=== PATIENT | male | born 1960 | race Caucasian/White ===

== ENCOUNTER 2017-02-14 14:44 | Outpatient (CLI) | payer OTHER | END 2017-02-14 14:45 | disposition home or self-care (01) | DX: G47.33 Obstructive sleep apnea (adult) (pediatric) (principal) ==

== ENCOUNTER 2017-04-20 14:21 | Outpatient (CLI) | payer OTHER | END 2017-04-20 14:22 | disposition home or self-care (01) | LOC: SC 14:21 | PROVIDERS: ATTEND Nurse Practitioner Family | DX: G47.33 Obstructive sleep apnea (adult) (pediatric) (principal) | CPT/HCPCS: 99212; 99214 ==

== ENCOUNTER 2017-06-15 13:52 | Outpatient (CLI) | payer OTHER | END 2017-06-15 13:53 | disposition home or self-care (01) | LOC: SC 13:52 | PROVIDERS: ATTEND Nurse Practitioner Family | DX: G47.33 Obstructive sleep apnea (adult) (pediatric) (principal) | CPT/HCPCS: 99212; 99214 ==

== ENCOUNTER 2018-08-15 14:38 | Outpatient (CLI) | payer OTHER | END 2018-08-15 14:39 | disposition home or self-care (01) | LOC: SC 14:38 | PROVIDERS: ATTEND Nurse Practitioner Family | DX: G47.33 Obstructive sleep apnea (adult) (pediatric) (principal) | CPT/HCPCS: 99212; 99214 ==

== ENCOUNTER 2018-12-18 12:45 | Outpatient (CLI) | payer OTHER | END 2018-12-18 12:46 | disposition home or self-care (01) | LOC: SC 12:45 | PROVIDERS: ATTEND Nurse Practitioner Family | DX: G47.33 Obstructive sleep apnea (adult) (pediatric) (principal) | CPT/HCPCS: 99212; 99214 ==

== ENCOUNTER 2020-04-16 15:46 | Outpatient (CLI) | payer OTHER ==
[2020-04-16 17:01] VITALS: BP 124/80
--- NOTE | 2020-04-16 17:01 | SLEEP CARE CONSULTATION ---
Information from patient questionnaire entered by Emily Rubio. I have reviewed and concur with the information entered by Emily Rbuio. This document represents the service I personally performed and the decisions made by me, Divine Gray, RN, MSN, H[employer] TENSION TE[employer]. History of Present Illness Service Date and Time: 04/16/2020 1546 Previous diagnosis: Mild, Obstructive Sleep Apnea-Hypopnea Syndrome AHI: 7.7 (in 2008) Reason for follow up: annual (last seen 2018) Equipment type: CPAP Equipment obtained from: [employer] (getting supplies as needed) Mask style: Full face (quartro mirage) Backup mask available: Yes (old mask ) Last cushion change: a week ago CPAP Compliance Data - Data Reviewed with Patient Average duration of nightly device use: 5.45 Compliance rate %: 82.2 (180 days) Current pressure setting (cmH2O): 6-10 Humidity settin Average residual AHI: 1.5 Average large leak: 7 min Subjective Patient concerns: denies: aerophagia, mask discomfort, air blowing in eyes, mask leak noise, condensation in mask/hose, nasal congestion, dry mouth, nose, throat, epistaxis, other Observed to snore while using device: No Current pressure setting perceived as: comfortable On therapy, patient: reports: sleeping better, awakening more refreshed, being more awake and alert during the day, more rested overall. denies: drowsiness while driving Initial [place] Sleepiness Scale score: 10 (in 2008) Current [place] Sleepiness Scale score: 4 Allergies and Home Medications Known drug allergies: No Home medication list reviewed: No (none) Review of Systems Review of systems same as previous: Yes Physical Exam Blood Pressure: 124/80 Cuff size: long Heart Rate: 74 O2 Saturation: 97 Height: 6 ft 2 in Weight: 241 lb Body Mass Index: 30.9 BMI Classification: Obese Impression and Plan 1. Obstructive Sleep Apnea-Hypopnea Syndrome, mild, with good treatment compliance and good apnea control. On CPAP therapy, the patient has better sleep quality and is more rested overall. To obtain more sleep with CPAP, he is advised to put mask on after using the bathroom as there is a higher risk of apnea in late sleep due to increase of REM. In addition, to prevent falling asleep without CPAP. He can also put the CPAP mask on pillow as a reminder. I looked up his sleep study and his apnea is primarily in REM sleep and showed patient his hypnogram. Maximum benefit of CPAP is obtained with use of CPAP with all sleep. Currently patients BMI is 30.9 obesity class . Obesity increases the risk of apnea, CPAP pressure requirements and overall health risks especially cardiovascular and diabetes. Thus patient is advised to lose weight. Weight loss can be done with reducing portion size, reducing refined foods and balancing content with vegetables, fruit and protein. A diet consultation can be helpful in achieving optimal weight loss goals. The BMI chart was reviewed. T Patient encouraged to discuss their weight loss goals with their PCP and consider a referral to a port patrol officer. The patient's CPAP pressure range should accommodate some weight loss. Symptoms to report for additional pressure adjustment discussed. Patient's apnea severity and rationale for treatment to reduce apnea, improve sleep quality and reduce cardiovascular and cerebrovascular events was reviewed. * Continue auto CPAP pressure at 6-10 cmH2O * Use CPAP with all sleep * Notify me if snoring with mask or feeling that the pressure is too much or too little * Attempt to lose weight * Call this office if any problems using CPAP * Return for follow up in 1 year , or sooner if concerns arise Visit Type: In Office Time Spent with Patient (minutes): 20 Provider Statement: I spent 100% of the Face to Face Visit with the patient with greater than 50% spent counseling the patient and coordination of care.
== END 2020-04-16 15:47 | disposition home or self-care (01) ==
LOC: SC 15:46
PROVIDERS: ATTEND Nurse Practitioner Family
DX: G47.33 Obstructive sleep apnea (adult) (pediatric) (principal); E66.9 Obesity, unspecified; Z68.30 Body mass index [BMI] 30.0-30.9, adult
CPT/HCPCS: 99212; 99213

== ENCOUNTER 2021-05-12 16:46 | Outpatient (CLI) | payer OTHER ==
--- NOTE | 2021-05-12 17:22 | SLEEP CARE CONSULTATION ---
Information from patient questionnaire entered by Leslie Lovell. I have reviewed and concur with the information entered by Leslie Lovell. This document represents the service I personally performed and the decisions made by , Idania Houston ARNP. History of Present Illness Service Date and Time: 05/12/2021 1646 Previous diagnosis: Mild, Obstructive Sleep Apnea-Hypopnea Syndrome AHI: 7.7 (in 2008) Reason for follow up: annual (Last seen 04/2020) Equipment type: CPAP Equipment obtained from: [employer] (getting supplies as needed) Mask style: Full face (Quattro mirage) Backup mask available: Yes (old mask) Last cushion change: 2 weeks ago Year and Where: 2012 [facility] poly HPI additional information: TIFF HOGAN was diagnosed to have mild, AHI 7.7, obstructive sleep apnea- hypopnea syndrome and returned today for CPAP therapy annual follow-up. CPAP Compliance Data - Data Reviewed with Patient Average duration of nightly device use: 6 h 17 min Compliance rate %: 87.8 Current pressure setting (cmH2O): 6-10 Average residual AHI: 1.3 Average large leak: 7 min 20 sec Subjective Patient concerns: denies: aerophagia, mask discomfort, air blowing in eyes, mask leak noise, condensation in mask/hose, nasal congestion, dry mouth, nose, throat, epistaxis, other Observed to snore while using device: No Current pressure setting perceived as: comfortable On therapy, patient: reports: sleeping better, awakening more refreshed, being more awake and alert during the day, more rested overall. denies: drowsiness while driving Initial [place] Sleepiness Scale score: 10 (in 2008) Current [place] Sleepiness Scale score: 5 Allergies and Home Medications Home medication list reviewed: Yes (no changes) Review of Systems Review of systems same as previous: Yes (no changes) Physical Exam Heart Rate: 70 O2 Saturation: 96 Height: 6 ft 2 in Weight: 241 lb Body Mass Index: 30.9 BMI Classification: Obese Impression and Plan 1. Obstructive Sleep Apnea-Hypopnea Syndrome, mild, with good treatment compliance and good apnea control. On CPAP therapy, the patient has better sleep quality and is more rested overall. Patient last updated his machine in 2013. His REMstar is on possibly on the [employer] recall. I instructed him on how to go on to their website to register his machine. Since he is eligible for a new machine we will update it. He has not noted any particles in the hose or the water chamber. The patients CPAP is over 5 years old and of reasonable use. Thus, the CPAP will be updated. A DWO prescription will be made. Compliance guidelines for new device and follow up discussed. I will follow-up with him 1 month after obtaining his new device. Patient's apnea severity and rationale for treatment to reduce apnea, improve sleep quality and reduce cardiovascular and cerebrovascular events was reviewed. * Continue auto CPAP pressure at 6-10 cmH2O * Update machine * Update supplies as needed * Notify me if snoring with mask or feeling that the pressure is too much or too little * Attempt to lose weight * Call this office if any problems using CPAP * Return for follow up in 1 year, or sooner if concerns arise Counseling Topics: Spare mask, Weight loss health impact Visit Type: In Office Time Spent with Patient (minutes): 22 Provider Statement: I spent 100% of the Face to Face Visit with the patient with greater than 50% spent counseling the patient and coordination of care.
== END 2021-05-12 16:47 | disposition home or self-care (01) ==
LOC: SC 16:46
PROVIDERS: ATTEND Nurse Practitioner Family
DX: G47.33 Obstructive sleep apnea (adult) (pediatric) (principal); E66.9 Obesity, unspecified; Z68.30 Body mass index [BMI] 30.0-30.9, adult
CPT/HCPCS: 99212; 99213

== ENCOUNTER 2023-01-13 14:38 | Outpatient (CLI) | payer OTHER ==
[2023-01-13 15:02] VITALS: BP 112/62
--- NOTE | 2023-01-13 15:02 | SLEEP CARE CONSULTATION ---
Information from patient questionnaire entered by Josefina Mejia. I have reviewed and concur with the information entered by Josefina Mejia. This document represents the service I personally performed and the decisions made by , Idania Houston ARNP. History of Present Illness Service Date and Time: 01/13/2023 1438 Previous diagnosis: Mild, Obstructive Sleep Apnea-Hypopnea Syndrome AHI: 7.7 (in 2008) Reason for follow up: first compliance after device update Equipment type: CPAP (RESMED Airsense 11 s/u 09/2022) Equipment obtained from: [employer] (getting supplies as needed) Mask style: Full face (Quattro mirage) Backup mask available: Yes (old mask) Last cushion change: December Prior sleep studies: Yes Year and Where: [address] [facility] [place] poly HPI additional information: TIFF HOGAN was diagnosed to have mild, AHI 7.7, obstructive sleep apnea- hypopnea syndrome and returned today for CPAP therapy first compliance after updating device follow-up. Sleep Study - Results Prior sleep studies: Yes Year and Where: [address] [facility] poly CPAP Compliance Data - Data Reviewed with Patient Average duration of nightly device use: 7 HRS 16 MINS Compliance rate %: 97 (12/13/22-01/11/23; 29/30 days used) Current pressure setting (cmH2O): 6-10 Average residual AHI: 0.8 Central apnea: 0.1 Obstructive apnea: 0.1 Hypopnea: 0.6 Subjective Missed days of use due to: reports: other (fell asleep without mask) Patient concerns: denies: aerophagia, mask discomfort, air blowing in eyes, mask leak noise, condensation in mask/hose, nasal congestion, dry mouth, nose, throat, epistaxis Observed to snore while using device: No Current pressure setting perceived as: comfortable On therapy, patient: reports: sleeping better, awakening more refreshed, being more awake and alert during the day, more rested overall. denies: drowsiness while driving Initial [place] Sleepiness Scale score: 10 (in 2008) Current [place] Sleepiness Scale score: 4 (01/13/23) Allergies and Home Medications Known drug allergies: No Drug allergies reviewed: Yes Home medication list reviewed: Yes (no changes) Review of Systems Review of systems same as previous: Yes (mole removed from right side of chest, benign) Physical Exam Vital signs obtained and entered by: JOSEFINA Coulter MA Blood Pressure: 112/62 (LEFT ARM) Cuff size: regular Heart Rate: 88 O2 Saturation: 97 Height: 6 ft 2 in Weight: 236 lb Body Mass Index: 30.2 BMI Classification: Obese Impression and Plan 1. Obstructive Sleep Apnea-Hypopnea Syndrome, mild, with good treatment compliance and good apnea control. On CPAP therapy, the patient has better sleep quality and is more rested overall. Patient had difficulty when he got his new machine because they sent him the wrong hose and filters for the new machine. He has since talked to them and they were supposed to send him out replacements but this has not occurred. I encouraged him to reach out to them so that he can get the supplies that he needs. He voiced understanding and agreement. Patient has significant improvement of their sleep apnea and is satisfied with current CPAP therapy. Patient denies problems with oral dryness, nasal congestion, epistaxis, skin irritation or aerophagia. Patient's apnea severity and rationale for treatment to reduce apnea, improve sleep quality and reduce card iovascular and cerebrovascular events was reviewed. 2. Obesity, unspecified. Currently patients BMI is 30.2. Obesity increases the risk of apnea, CPAP pressure requirements and overall health risks especially cardiovascular and diabetes. Thus patient is advised to lose weight. * Continue auto CPAP pressure at 6-10 cmH2O * Notify me if snoring with mask or feeling that the pressure is too much or too little * Attempt to lose weight * Call this office if any problems using CPAP * Return for follow up in 1 year, or sooner if concerns arise Counseling Topics: Spare mask, Weight loss health impact Visit Type: In Office Time Spent with Patient (minutes): 10 Provider Statement: I spent 100% of the Face to Face Visit with the patient with greater than 50% spent counseling the patient and coordination of care.
== END 2023-01-13 14:39 | disposition home or self-care (01) ==
LOC: SC 14:38
PROVIDERS: ATTEND Nurse Practitioner Family
DX: G47.33 Obstructive sleep apnea (adult) (pediatric) (principal); E66.9 Obesity, unspecified; Z68.30 Body mass index [BMI] 30.0-30.9, adult
CPT/HCPCS: 99212

== ENCOUNTER 2024-02-09 08:43 | Outpatient (CLI) | payer OTHER ==
--- NOTE | 2024-02-09 09:08 | Sleep Patient Instructions ---
Sleep Center Visit Summary - Patient Visit Information Reason for Visit: Annual follow-up - Patient Instructions Additional Instructions: You will continue with CPAP therapy with pressure set at 6-10 cmH2O. A supply prescription will be updated with your DME. We encourage you to continue to try to lose weight. Please follow up with the sleep care office in 1 year. - Clinic Information Contact: [facility] [address] [place] [address] [email or web address] T: [phone]
--- NOTE | 2024-02-09 09:11 | SLEEP CARE CONSULTATION ---
Information from patient questionnaire entered by Uzma Mejia. I have reviewed and concur with the information entered by Uzma Mejia. This document represents the service I personally performed and the decisions made by , Idania Houston ARNP. History of Present Illness Service Date and Time: 02/09/2024 0843 Previous diagnosis: Mild, Obstructive Sleep Apnea-Hypopnea Syndrome AHI: 7.7 (in 2008) Reason for follow up: annual (LAST SEEN 01/2023) Equipment type: CPAP (RESMED Airsense 11 s/u 09/2022) Equipment obtained from: [employer] (getting supplies as needed) Mask style: Full face (Quattro Mirage) Backup mask available: Yes Last cushion change: last month Prior sleep studies: Yes Year and Where: 2008 [facility] poly HPI additional information: TIFF HOGAN was diagnosed to have mild, AHI 7.7, obstructive sleep apnea- hypopnea syndrome and returned today for CPAP therapy annual follow-up. Sleep Study - Results Prior sleep studies: Yes Year and Where: 2012 [facility] poly CPAP Compliance Data - Data Reviewed with Patient Average duration of nightly device use: 7 HRS 43 MINS Compliance rate %: 99 (02/07/23-02/06/24; 363/365 days used) Current pressure setting (cmH2O): 6-10 Average residual AHI: 1.2 Central apnea: 0.1 Obstructive apnea: 0.3 Hypopnea: 0.8 Average large leak: 1.6 L/min Subjective Missed days of use due to: reports: illness (after surgery) Patient concerns: reports: air blowing in eyes (occasional ). denies: aerophagia, mask discomfort, mask leak noise, condensation in mask/hose, nasal congestion, dry mouth, nose, throat, epistaxis Observed to snore while using device: No Current pressure setting perceived as: comfortable On therapy, patient: reports: sleeping better, awakening more refreshed, being more awake and alert during the day, more rested overall. denies: drowsiness while driving Initial [place] Sleepiness Scale score: 10 (in 2008) Current [place] Sleepiness Scale score: 4 Allergies and Home Medications Known drug allergies: No Drug allergies reviewed: Yes Home medication list reviewed: Yes (81 mg aspirin) Allergy and home medication list: Allergies No Known Drug Allergies Allergy (Verified 02/07/24 09:41) Home Medications Medication Instructions Recorded Confirmed Last Taken Type Multivitamin See Rx Instructions .ROUTE .COMPLEX 01/13/23 02/09/24 Unknown History Aspirin See Rx Instructions .ROUTE .COMPLEX 02/09/24 02/09/24 Unknown History Flonase See Rx Instructions .ROUTE .COMPLEX 02/09/24 02/09/24 Unknown History Review of Systems Review of systems same as previous: No (aortic valve replacement [id number]) Physical Exam Vital signs obtained and entered by: IDANIA ANTHONY-Marylin Blood Pressure: 147/97 Cuff size: regular (left arm) Heart Rate: 92 O2 Saturation: 97 Height: 6 ft 2 in Weight: 239 lb 9.6 oz Weight change since last visit: 3 lb gain Body Mass Index: 30.7 BMI Classification: Obese Impression and Plan 1. Obstructive Sleep Apnea-Hypopnea Syndrome, mild, with good treatment compliance and good apnea control. On CPAP therapy, the patient has better sleep quality and is more rested overall. Patient has significant improvement of their sleep apnea and is satisfied with current CPAP therapy. Patient denies problems with oral dryness, nasal congestion, epistaxis, skin irritation or aerophagia. Patient's apnea severity and rationale for treatment to reduce apnea, improve sleep quality and reduce cardiovascular and cerebrovascular events was reviewed. He had an aortic valve replacement in June 2023. 2. Obesity, unspecified. Currently patients BMI is 30.7. He has gained weight since surgery. He is going to the gym 3 times a week and watching his portions. Obesity increases the risk of apnea, CPAP pressure requirements and overall health risks especially cardiovascular and diabetes. Thus patient is advised to continue to try to lose weight. * Continue auto CPAP pressure at 6-10 cmH2O * Update supply prescription * Notify me if snoring with mask or feeling that the pressure is too much or too little * Attempt to lose weight * Call this office if any problems using CPAP * Return for follow up in 12 months, or sooner if concerns arise Counseling Topics: Spare mask, Weight loss health impact Prescriptions: Device supplies Follow up with Sleep Care in: 1 year Visit Type: In Office Time Spent with Patient (minutes): 20 Provider Statement: I spent 100% of the Face to Face Visit with the patient with greater than 50% spent counseling the patient and coordination of care.
[2024-02-09 09:15] VITALS: BP 147/97; O2SAT 97
== END 2024-02-09 08:44 | disposition home or self-care (01) ==
LOC: SC 08:43
PROVIDERS: ATTEND Nurse Practitioner Family
DX: G47.33 Obstructive sleep apnea (adult) (pediatric) (principal); E66.9 Obesity, unspecified; Z68.30 Body mass index [BMI] 30.0-30.9, adult
CPT/HCPCS: 99212; 99213

== ENCOUNTER 2024-07-06 09:44 | Outpatient (CLI) | payer OTHER | END 2024-07-06 09:45 | disposition EMS.NT | LOC: EMS 09:44 | DX: R04.0 Epistaxis (principal) ==

== ENCOUNTER 2024-07-06 11:43 | Emergency (ER) | payer OTHER ==
--- NOTE | 2024-07-06 12:03 | ED Physician Documentation ---
History of Present Illness - Stated complaint Stated Complaint: PERSISTENT NOSE BLEED - Chief complaint Chief Complaint: Heent - Additonal information Additional information: 64-year-old male with history of valve disorder presents emergency department for nosebleed that has been going on since 9:30 AM. Patient says that he was going to the bathroom and started noticing right nares nosebleed eventually turned into bilateral nares nosebleed 911 was called around 930 and his vitals and everything were stable so medics told him if he wanted to self direct himself to the emergency department he is more than welcome to. They tried to get the nosebleeding to stop at home but were unable to. He takes a daily baby aspirin but is not any blood thinners. He has not had any recent trauma to the nose. PD PAST MEDICAL HISTORY - Past Medical History Past Medical History: Yes Cardiovascular: Valve disorder - Past Surgical History Past Surgical History: No - Present Medications Home Medications: Ambulatory Orders Medication Instructions Recorded Confirmed Multivitamin See Rx Instructions .ROUTE .COMPLEX 01/13/23 02/09/24 Aspirin See Rx Instructions .ROUTE .COMPLEX 02/09/24 02/09/24 Flonase See Rx Instructions .ROUTE .COMPLEX 02/09/24 02/09/24 cephALEXin [Keflex] 500 mg PO Q6H 5 Days #20 cap 07/06/24 - Allergies Allergies/Adverse Reactions: Allergies Allergy/AdvReac Type Severity Reaction Status Date / Time No Known Drug Allergies Allergy Verified 07/06/24 11:52 - Social History Does the pt smoke?: No Smoking Status: Never smoker Does the pt drink ETOH?: Yes Does the pt have substance abuse?: No PD ED PE NORMAL - Vitals Vital signs reviewed: Yes - General General: Alert and oriented X 3, Well developed/nourished - Cardiac Cardiac: RRR, No murmur, Strong equal pulses, Other (tachycardia) - Respiratory Respiratory: No respiratory distress, Clear bilaterally PD ED PE EXPANDED - HEENT HEENT: Bilateral epistaxis Results - Vitals Vitals: Vital Signs - 24 hr 07/06/24 07/06/24 07/06/24 11:55 12:36 12:38 Temperature 36.8 C Heart Rate 97 131 H Respiratory 18 Rate Blood Pressure 146/93 H 135/91 H 130/94 H O2 Saturation 97 07/06/24 07/06/24 07/06/24 13:00 13:30 14:00 Temperature Heart Rate 127 H 118 H 104 H Respiratory 21 20 18 Rate Blood Pressure 122/94 H 111/85 H 125/98 H O2 Saturation 96 95 96 07/06/24 07/06/24 14:30 15:00 Temperature Heart Rate 104 H 99 Respiratory 17 17 Rate Blood Pressure 135/78 H 129/84 H O2 Saturation 94 96 Oxygen O2 Source Room air - Labs Labs: Laboratory Tests 07/06/24 07/06/24 13:08 13:08 WBC 13.4 H RBC 4.95 Hgb 15.1 Hct 45.3 MCV 91.5 MCH 30.5 MCHC 33.3 RDW 12.9 Plt Count 299 MPV 8.9 Neut # (Auto) 11.6 H Lymph # (Auto) 1.0 L [place] # (Auto) 0.7 Eos # (Auto) 0.1 Baso # (Auto) 0.0 Absolute Nucleated RBC 0.00 Nucleated RBC % 0.0 Sodium 140 Potassium 4.4 Chloride 107 Carbon Dioxide 26 Anion Gap 7.0 BUN 32 H Creatinine 0.8 Estimated GFR (MDRD) 98 Glucose 137 H Calcium 9.4 Magnesium 1.8 Total Bilirubin 1.0 AST 12 ALT 7 L Alkaline Phosphatase 50 Total Protein 7.3 Albumin 4.3 Globulin 3.0 Albumin/Globulin Ratio 1.4 Lipase 15 PD Medical Decision Making - ED course ED course: Simple discharge This _ patient presents with likely anterior bilateral epistaxis. There are no risk factors for bleeding disorders and the patient is hemodynamically stable. No evidence of anemia. This patient is not on anticoagulant. Placed direct pressure and afirin without alleviation of symptoms, which led to further intervention requiring bilateral rhino-rockets which ultimately did stop the bleeding. He did have tachycardia while he was here which significantly improved with one Litre IV fluids. Labs are stable vitals stable. Patient is discharged with bilateral Rhino Rocket's and told to come back to the walk-in clinic in 3 days, on Monday to have both Rhino Rocket's removed and to follow-up with ENT outpatient. Prescription of Keflex was prescribed for prophylactic treatment especially given the fact that he had bilateral Rhino Rocket's he was taught how to take this and when to discontinue taking these antibiotics. Return precautions given all questions answered patient monitored for several hours is stable and safe for discharge. Departure - Departure Disposition: 01 Home, Self Care Clinical Impression: Anterior epistaxis Instructions: ED Nosebleed Prescriptions: cephALEXin [Keflex] 500 mg PO Q6H 5 Days #20 cap Comments: Thank you for trusting us with your care, you will actually need your rhino rockets removed On Monday. I am starting you on antibiotic called Keflex you will take this 4 times a day until you have your Rhino Rocket is removed you actually can go to the urgent care walk-in clinic for this if you are unable to get in same-day with ear nose and throat. Please help with your primary care provider to get an ENT referral for further evaluation of this nosebleed today. After you have your Rhino Rocket is removed make sure that you are keeping your nose moist with Vaseline to prevent from a repeat bleed. Please come back to the ER if you are having continued issues with nosebleeds going home. Forms: PCP List Discharge Date/Time: 07/06/24 15:34
[2024-07-06] MEDS ORDERED: OXYMETAZOLINE HCL 100 SPRAYS BOTTLE NAS STA (12:06)
[2024-07-06] MEDS: ONDANSETRON ODT 4 MG TABLET TL STA (12:18)
[2024-07-06] MEDS: OXYMETAZOLINE HCL 100 SPRAYS BOTTLE NAS STA (12:18)
[2024-07-06 13:13] LABS: BASOPHILS % (AUTO) 0.3 %; EOSINOPHILS # (AUTO) 0.1 10^3/uL (0.0-0.7); EOSINOPHILS % (AUTO) 0.4 %; HCT - HEMATOCRIT 45.3 % (42.0-52.0); HGB - HEMOGLOBIN 15.1 g/dL (14.0-18.0); LYMPHOCYTES % (AUTO) 7.3 %; MEAN CORPUSCULAR HEMOGLOBIN 30.5 pg (27.0-31.0); MEAN CORPUSCULAR HGB CONC 33.3 g/dL (32.0-36.0); MEAN CORPUSCULAR VOLUME 91.5 fL (80.0-94.0); MEAN PLATELET VOLUME 8.9 fL (7.4-11.4); MONOCYTES # (AUTO) 0.7 10^3/uL (0.0-1.0); MONOCYTES % (AUTO) 5.2 %; NEUTROPHILS # (AUTO) 11.6 10^3/uL (1.5-6.6); NEUTROPHILS % (AUTO) 86.5 %; PLT - PLATELET COUNT 299 10^3/uL (130-450); RED BLOOD COUNT 4.95 10^6/uL (4.70-6.10); RED CELL DISTRIBUTION WIDTH 12.9 % (12.0-15.0); WHITE BLOOD COUNT 13.4 x10^3/uL (4.8-10.8)
[2024-07-06 13:25] LABS: ALBUMIN 4.3 g/dL (3.2-5.5); ALBUMIN/GLOBULIN RATIO 1.4 (1.0-2.2); CALCIUM 9.4 mg/dL (8.5-10.3); CREATININE 0.8 mg/dL (0.6-1.3); MAGNESIUM 1.8 mg/dL (1.7-2.3); POTASSIUM 4.4 mmol/L (3.5-4.5); TOTAL PROTEIN 7.3 g/dL (6.4-8.9)
[2024-07-06] MEDS: SODIUM CHLORIDE 0.9% 1,000 ML IV ONE (13:50)
[2024-07-06] MEDS: cephALEXin 250 MG CAPSULE PO STA (15:13)
[2024-07-06 15:34] VITALS: BP 129/84; O2SAT 96
== END 2024-07-06 15:34 | disposition home or self-care (01) ==
LOC: ED 11:43
DX: R04.0 Epistaxis (principal); Z95.2 Presence of prosthetic heart valve; Z79.82 Long term (current) use of aspirin
CPT/HCPCS: 30901; 36415; 80053; 83690; 83735; 85025; 96360; 99283; 99284; A9270; Q0162

== ENCOUNTER 2024-07-07 10:35 | Emergency (ER) | payer OTHER ==
--- NOTE | 2024-07-07 11:02 | ED Physician Documentation ---
PD HPI HEENT - Stated complaint Stated Complaint: NOSE BLEED - Chief complaint Chief Complaint: Heent - Additional information Additional information: 64-year-old male valve disorder presents emergency department for recurrent epistaxis. Patient was here yesterday where he was treated with bilateral Rhino Rocket's and started on Keflex for bilateral presumably anterior nosebleeds. He was started on Keflex for prophylaxis treatment and was given return precautions patient reports going home he is still having small amount of continual bilateral oozing and bleeding. He said that he still spitting up some blood and they called some on-call physician who recommended presenting back to the emergency department for reevaluation. He denies any dizziness he says that he did not sleep well overnight because of these bilateral Rhino Rocket's. Denies dizziness. PD PAST MEDICAL HISTORY - Past Medical History Cardiovascular: Valve disorder - Past Surgical History Past Surgical History: No - Present Medications Home Medications: Ambulatory Orders Medication Instructions Recorded Confirmed Multivitamin See Rx Instructions .ROUTE .COMPLEX 01/13/23 02/09/24 Aspirin See Rx Instructions .ROUTE .COMPLEX 02/09/24 02/09/24 Flonase See Rx Instructions .ROUTE .COMPLEX 02/09/24 02/09/24 cephALEXin [Keflex] 500 mg PO Q6H 5 Days #20 cap 07/06/24 - Allergies Allergies/Adverse Reactions: Allergies Allergy/AdvReac Type Severity Reaction Status Date / Time No Known Drug Allergies Allergy Verified 07/07/24 10:47 - Social History Does the pt smoke?: No Smoking Status: Never smoker Does the pt drink ETOH?: Yes Does the pt have substance abuse?: No - POLST Patient has POLST: No PD ED PE NORMAL - Vitals Vital signs reviewed: Yes - General General: Alert and oriented X 3, No acute distress, Well developed/nourished - HEENT HEENT: Other (bilateral Rhino Rocket's both saturated in blood not significant amount of bleeding around the Rhino Rocket's.) - Cardiac Cardiac: RRR - Respiratory Respiratory: No respiratory distress Results - Vitals Vitals: Vital Signs - 24 hr 07/07/24 07/07/24 07/07/24 10:47 11:20 12:00 Temperature 36.6 C Heart Rate 112 H 100 106 H Respiratory 18 Rate Blood Pressure 130/93 H 124/87 H 119/79 O2 Saturation 98 94 100 07/07/24 07/07/24 07/07/24 12:30 13:00 13:44 Temperature 36.5 C 36.6 C 36.7 C Heart Rate 96 87 90 Respiratory 18 18 18 Rate Blood Pressure 129/94 H 120/82 H 114/79 O2 Saturation 100 100 99 Oxygen O2 Source Room air - Labs Labs: Laboratory Tests 07/07/24 12:02 WBC 12.3 H RBC 4.75 Hgb 14.4 Hct 43.7 MCV 92.0 MCH 30.3 MCHC 33.0 RDW 13.2 Plt Count 269 MPV 8.9 Neut # (Auto) 9.6 H Lymph # (Auto) 1.5 Davison # (Auto) 1.1 H Eos # (Auto) 0.1 Baso # (Auto) 0.0 Absolute Nucleated RBC 0.00 Nucleated RBC % 0.0 PD Medical Decision Making - ED course ED course: 64-year-old male presents to emergency department for continued oozing and bleeding around Rhino Rocket. 11:15 AM: Spoke with on-call ENT physician Dr. Villegas who recommended swapping out the Rhino Rocket's blowing his nose to see if there is any remaining clots spraying Afrin and replacing Rhino Rocket's to see if this stops the bleeding. I removed the left Rhino Rocket and there was no ongoing bleeding and we were able to leave the left Rhino Rocket out successfully without any complications or continued epistaxis. I eventually remove the right Rhino Rocket which did follow with a significant amount of oozing and bleeding. Patient was able to blow his nose and a very large clot was extracted. I used a atomizer to spray lido with epi and Afrin to the right knee years and then replaced with a new 7.5 cm Rhino Rocket to the right lorena patient was monitored for several hours and there was no recurrence of bleeding or oozing coming out from the right nostril.s. Patient was told that he will need to present back to the emergency department 3 days from today I rechecked his CBC and there is no anemia visualized. He will follow-up with ENT outpatient will present back to the ER or urgent care on Monday to have right Rhino Rocket removed he is told to continue Keflex until Rhino Rocket is removed. Departure - Departure Disposition: 01 Home, Self Care Clinical Impression: Epistaxis Instructions: Nosebleed Comments: Thank you for trusting us with your care. We have removed your left Rhino Rocket and replaced your right one and we appear to have resolution of bleeding. Please come back to the ER if it happens again continue Keflex follow-up with ENT outpatient. Forms: PCP List Discharge Date/Time: 07/07/24 13:48
[2024-07-07] MEDS: LIDOCAINE 1%-EPI 1:100000 20 ML MDV SUBQ STA (11:19)
[2024-07-07] MEDS: OXYMETAZOLINE HCL 100 SPRAYS BOTTLE NAS STA (11:19)
[2024-07-07 12:11] LABS: BASOPHILS % (AUTO) 0.3 %; EOSINOPHILS # (AUTO) 0.1 10^3/uL (0.0-0.7); EOSINOPHILS % (AUTO) 0.5 %; HCT - HEMATOCRIT 43.7 % (42.0-52.0); HGB - HEMOGLOBIN 14.4 g/dL (14.0-18.0); LYMPHOCYTES # (AUTO) 1.5 10^3/uL (1.5-3.5); LYMPHOCYTES % (AUTO) 12.1 %; MEAN CORPUSCULAR HEMOGLOBIN 30.3 pg (27.0-31.0); MEAN PLATELET VOLUME 8.9 fL (7.4-11.4); MONOCYTES # (AUTO) 1.1 10^3/uL (0.0-1.0); MONOCYTES % (AUTO) 8.8 %; NEUTROPHILS # (AUTO) 9.6 10^3/uL (1.5-6.6); NEUTROPHILS % (AUTO) 78.1 %; PLT - PLATELET COUNT 269 10^3/uL (130-450); RED BLOOD COUNT 4.75 10^6/uL (4.70-6.10); RED CELL DISTRIBUTION WIDTH 13.2 % (12.0-15.0); WHITE BLOOD COUNT 12.3 x10^3/uL (4.8-10.8)
[2024-07-07] MEDS: BACITRACIN ZINC OINT 1 PACKET TOP STA (12:29)
[2024-07-07 13:56] VITALS: BP 114/79; O2SAT 99
== END 2024-07-07 13:48 | disposition home or self-care (01) ==
LOC: ED 10:35
DX: R04.0 Epistaxis (principal)
CPT/HCPCS: 30901; 36415; 85025; 99283; A9270